=== PATIENT | male | born 1995 | race Caucasian/White ===

== ENCOUNTER 2020-08-29 10:36 | Emergency (ER) | payer OTHER ==
[~2020-08-29] VITALS: Ht 177.8 cm; Wt 72.6 kg
--- NOTE | 2020-08-29 10:52 | NUR ---
THE PATIENT [employer], FOR POSSIBLE SEIZURE ACTIVITY, LAST FENTANYL USED 2 DAYS AGO. THE PATIENT IS ALERT AND ORIENTED X2. ABLE TO MAKE NEEDS KNOWN VERBALLY. [employer] OFFICERS AT THE BEDSIDE. WILL CONTINUE TO MONITOR THE PATIENT.
[2020-08-29] MEDS ORDERED: BUPRENORPHINE HCL 8 MG TAB.SUBL SL ONE ×2 (11:30→11:49)
[2020-08-29] MEDS ORDERED: BUPRENORPHINE HCL 2 MG TAB.SUBL SL ONE (11:36)
--- NOTE | 2020-08-29 12:55 | NUR ---
Patient discharged in stable condition and accompanied by [employer] officers. Written and verbal after care instructions given. Patient and [employer] officers verbalize understanding of instruction.
[2020-08-29 12:56] VITALS: BP 133/82
== END 2020-08-29 12:56 ==
LOC: ER 10:40
DX: F11.23 Opioid dependence with withdrawal (principal); F41.9 Anxiety disorder, unspecified; R11.0 Nausea; R00.0 Tachycardia, unspecified; F10.10 Alcohol abuse, uncomplicated; Y90.9 Presence of alcohol in blood, level not specified
CPT/HCPCS: 82962-TC